=== PATIENT | female | born 1965 | race Two or more races ===

== ENCOUNTER 2019-10-05 10:55 | Emergency (ER) | payer SELFPAY ==
[~2019-10-05] VITALS: Ht 162.6 cm; Wt 60.3 kg
[2019-10-05] MEDS ORDERED: DexAMETHasone SOD PHOS 10MG/1ML VIAL INJ IM ONE (11:30)
[2019-10-05 12:59] VITALS: BP 120/72
== END 2019-10-05 13:04 | disposition home or self-care (01) ==
LOC: ER 10:55
DX: J18.9 Pneumonia, unspecified organism (principal); J06.9 Acute upper respiratory infection, unspecified
CPT/HCPCS: 36415; 71045; 87426; 96372; 99284; J1100

== ENCOUNTER 2019-10-07 03:53 | Inpatient (IN) | payer OTHER ==
[~2019-10-07] VITALS: Ht 162.6 cm; Wt 62.3 kg
[2019-10-07] MEDS ORDERED: LACTATED RINGER'S 1,000 ML IV ONE (06:15)
[2019-10-07] MEDS ORDERED: AZITHROMYCIN 500MG/ 250ML 250 ML IV ONE (06:15)
[2019-10-07 06:29] LABS: INR 0.88 (0.9-1.15); Partial Thromboplastin Time 22.4 sec (23.0-31.2)
[2019-10-07 06:52] LABS: Chloride 105 mmol/L (98-107); Lactic Acid w/Reflex 4.1 mmol/L (0.4-2.0); Potassium 3.9 mmol/L (3.5-5.1); Sodium 139 mmol/L (136-145)
[2019-10-07 07:02] LABS: Alanine Aminotransferase 52 U/L (13-56); Albumin 3.2 g/dL (3.4-5.0); Alkaline Phosphatase 79 U/L (45-117); Anion Gap 8 (5-15); Aspartate Aminotransferase 74 U/L (15-37); BUN/Creatinine Ratio 10.3; Bilirubin, Total 0.2 mg/dL (0.2-1.0); Blood Urea Nitrogen 8 mg/dL (7-18); Calcium 8.7 mg/dL (8.5-10.1); Carbon Dioxide 26 mmol/L (21-32); GFR African American 99 mL/min; GFR Non-African American 81 mL/min; Glucose 121 mg/dL (74-106); Lactate Dehydrogenase 358 U/L (84-246); Total Protein 8.4 g/dL (6.4-8.2)
[2019-10-07 07:06] LABS: Basophils # (auto) 0 10 ^3/uL (0-0.2); Basophils % (auto) 0.2 % (0.0-2.0); Eosinophils # (auto) 0 10 ^3/uL (0-0.8); Hematocrit 36.1 % (36.0-46.0); Hemoglobin 11.3 g/dL (12.2-16.2); Lymphocytes # (auto) 0.7 10 ^3/uL (0.4-5.4); Lymphocytes % (auto) 4.3 % (10.0-50.0); Mean Corpuscular Hemoglobin 23.7 pg (28.0-32.0); Mean Corpuscular Hgb Conc. 31.3 g/dL (32.0-36.0); Monocytes # (auto) 0.9 10 ^3/uL (0-1.3); Monocytes % (auto) 5.9 % (0.0-12.0); Neutrophils # (auto) 14.1 10 ^3/uL (1.6-8.6); Neutrophils % (auto) 89.6 % (37.0-80.0); Platelet Count (auto) 341 10^3/uL (140-450); Red Blood Cells 4.75 10^6/uL (4.0-5.20); Red Cell Distribution Width 16.3 % (11.8-14.3); White Blood Cell 15.8 10^3/uL (4.4-10.8)
[2019-10-07] MEDS ORDERED: SODIUM CHLORIDE 0.9% 1,000 ML IV SCH (07:09)
[2019-10-07] MEDS ORDERED: MORPHINE SULF INJ 2 MG/ML SYRINGE 1ML IV PRN (07:15)
[2019-10-07] MEDS ORDERED: TEMAZEPAM 15 MG CAP PO PRN (07:15)
[2019-10-07] MEDS ORDERED: ACETAMINOPHEN 325 MG TAB PO PRN (07:15)
[2019-10-07] MEDS ORDERED: NITROGLYCERIN 0.4 MG SL TAB SL PRN (07:15)
[2019-10-07] MEDS ORDERED: ONDANSETRON HCL 4 MG/2 ML VIAL IV PRN (07:15)
[2019-10-07 08:37] VITALS: BP 126/78
[2019-10-07] MEDS ORDERED: AZIT250T9 PO (10:36)
[2019-10-07] MEDS ORDERED: ALBUAER3 IN (10:36)
[2019-10-07] MEDS: ZINC SULFATE 220mg CAP or TAB PO SCH (10:46)
[2019-10-07] MEDS: FAMOTIDINE 20 MG TAB PO SCH ×2 (10:47→21:18)
[2019-10-07] MEDS: ASCORBIC ACID 1,000 MG TAB PO SCH (10:47)
[2019-10-07] MEDS: CHOLECALCIFEROL (VITD3) 2,000 UNIT CAP PO SCH (10:47)
[2019-10-07] MEDS: ENOXAPARIN SOD 40 MG/0.4 ML SYRINGE SC SCH (10:48)
[2019-10-07] MEDS: DOXYCYCLINE 100MG/250ML 250 ML IV SCH ×2 (10:48→21:18)
[2019-10-07] MEDS: DexAMETHasone SOD PHOS 10MG/1ML VIAL INJ IV SCH (10:52)
[2019-10-07 12:00] VITALS: BP 113/74
[2019-10-07] MEDS ORDERED: guaiFENesin-CODEINE Liq 5 ML UD PO ONE (12:30)
[2019-10-07] MEDS ORDERED: cefTRIAXone 1GM/50ML D5W 50 ML IV ONE (12:30)
--- NOTE | 2019-10-07 13:10 | NUR ---
SPOKE WITH Juan PUGH OVER THE PHONE REGARDING PATIENT STATUS. INFORMED OF PATIENTS COUGH AND CURRENT LABS. SEE EMR FOR NEW ORDERS.
[2019-10-07] MEDS: BUDESONIDE (INHALATION) 180 MCG IH IN SCH ×3 (14:08→21:20)
[2019-10-07] MEDS: ALBUTEROL SULF HFA 90MCG INH 200DOSE IN SCH ×3 (14:08→21:20)
--- NOTE | 2019-10-07 15:28 | NUR ---
PATIENT TAKEN DOWN TO CT BY PROCESS TECHNICIAN. PATIENT TRANSPORTED VIA WHEELCHAIR ON 4L NC AND TELEMETRY MONITORING. Addendum: 10/07/19 at 1936 by WILFREDO BANKS RN RN PLEASE DISREGARD TIME, CORRECT TIME OF NOTE WAS AT 1728.
[2019-10-07 16:47] VITALS: BP 112/69
--- NOTE | 2019-10-07 17:07 | NUR ---
RECEIVED CALL FROM RAISER HELPER EBEN, INSTRUCTED TO HAVE PATIENT READY IMMEDIATELY FOR CT SCAN AND TO PAGE SECURITY AND EVS.
--- NOTE | 2019-10-07 17:45 | NUR ---
PATIENT FOUND IN THE ANTE-ROOM IN WHEELCHAIR BY ANANT MALONE. PATIENT WHEELED BACK TO ROOM AND HOOKED BACK UP TO OXYGEN AT 4L NC. PATIENT ASSISTED BACK INTO BED. PATIENT COMPLAINING OF MILD COUGH, BUT NO OTHER S/S OF DISTRESS NOTED AT THIS TIME.
[2019-10-07] MEDS: guaiFENesin-CODEINE Liq 5 ML UD PO PRN (18:33)
[2019-10-07 18:55] LABS: Urine WBC None Seen /hpf (0 - 5)
--- NOTE | 2019-10-07 19:09 | NUR ---
PATIENT PROVIDED WITH IS. UP TO 500ML WITH PROPER RETURN DEMONSTRATION.
[2019-10-07 19:17] LABS: Urine Bacteria NONE SEEN /hpf (None Seen); Urine Blood Negative /uL (Negative); Urine Specific Gravity 1.009 (1.001-1.035)
--- NOTE | 2019-10-07 19:20 | NUR ---
Opening Shift Note Assumed care of patient, awake and alertx4. No S/S of distress/SOB or pain. Patient on 4L on NC. Instructed on POC and to call for assist PRN, will continue to monitor for changes Q1hr and PRN.
[2019-10-07 20:00] VITALS: BP 122/75
[2019-10-07 22:12] VITALS: BP 122/75
[2019-10-08] MEDS: guaiFENesin-CODEINE Liq 5 ML UD PO PRN ×4 (00:33→15:09)
[2019-10-08 05:34] VITALS: BP 116/62
[2019-10-08 05:52] LABS: Basophils # (auto) 0 10 ^3/uL (0-0.2); Eosinophils # (auto) 0 10 ^3/uL (0-0.8); Lymphocytes # (auto) 0.9 10 ^3/uL (0.4-5.4); Mean Corpuscular Volume 75.2 fL (80.0-100.0); Monocytes # (auto) 0.9 10 ^3/uL (0-1.3); Red Cell Distribution Width 16.5 % (11.8-14.3)
[2019-10-08 05:54] LABS: Basophils % (auto) 0.1 % (0.0-2.0); Hematocrit 33.6 % (36.0-46.0); Hemoglobin 10.7 g/dL (12.2-16.2); Lymphocytes % (auto) 5.9 % (10.0-50.0); Mean Corpuscular Hemoglobin 23.9 pg (28.0-32.0); Mean Corpuscular Hgb Conc. 31.8 g/dL (32.0-36.0); Neutrophils # (auto) 12.9 10 ^3/uL (1.6-8.6); Platelet Count (auto) 328 10^3/uL (140-450); Red Blood Cells 4.47 10^6/uL (4.0-5.20); White Blood Cell 14.7 10^3/uL (4.4-10.8)
[2019-10-08 06:09] LABS: Albumin 2.9 g/dL (3.4-5.0); Calcium 8.6 mg/dL (8.5-10.1); Potassium 3.8 mmol/L (3.5-5.1)
[2019-10-08 06:12] LABS: BUN/Creatinine Ratio 11.3; Bilirubin, Total 0.3 mg/dL (0.2-1.0); Total Protein 7.7 g/dL (6.4-8.2)
[2019-10-08] MEDS: BUDESONIDE (INHALATION) 180 MCG IH IN SCH ×2 (06:58→22:15)
[2019-10-08] MEDS: ALBUTEROL SULF HFA 90MCG INH 200DOSE IN SCH ×2 (06:58→22:15)
[2019-10-08 09:00] VITALS: BP 123/73
[2019-10-08] MEDS ORDERED: FERROUS SULFATE 325 MG TAB PO ONE (09:30)
[2019-10-08] MEDS: FAMOTIDINE 20 MG TAB PO SCH ×2 (10:52→22:00)
[2019-10-08] MEDS: cefTRIAXone 1GM/50ML D5W 50 ML IV SCH (10:52)
[2019-10-08] MEDS: ASCORBIC ACID 1,000 MG TAB PO SCH (10:52)
[2019-10-08] MEDS: CHOLECALCIFEROL (VITD3) 2,000 UNIT CAP PO SCH (10:53)
[2019-10-08] MEDS: DOXYCYCLINE 100MG/250ML 250 ML IV SCH (10:53)
[2019-10-08] MEDS: ZINC SULFATE 220mg CAP or TAB PO SCH (10:53)
[2019-10-08] MEDS: ENOXAPARIN SOD 40 MG/0.4 ML SYRINGE SC SCH (10:53)
[2019-10-08] MEDS: DexAMETHasone SOD PHOS 10MG/1ML VIAL INJ IV SCH (11:05)
[2019-10-08] MEDS: FERROUS SULFATE 325 MG TAB PO SCH ×2 (11:10→18:40)
--- NOTE | 2019-10-08 12:10 | NUR ---
Juan ROUNDING: Juan PUGH AT BEDSIDE. INFORMED OF PATIENT STATUS INCLUDING CURRENT VITALS. INFORMED OF PATIENTS TACHYPNEA DURING ANY EXERTION. RESPIRATORY RATE OF 24-26BPM. RECEIVED NEW ORDERS. SEE EMR.
[2019-10-08 13:02] VITALS: BP 108/69
[2019-10-08] MEDS ORDERED: FUROSEMIDE 40 MG/4 ML VIAL IV ONE (15:00)
[2019-10-08] MEDS ORDERED: ALPRAZolam 0.5 MG TAB PO ONE (15:00)
--- NOTE | 2019-10-08 15:01 | NUR ---
SPOKE TO Juan PUGH REGARDING PATIENTS INCREASED RESPIRATORY RATE OF 28BPM. OXYGEN SATURATIONS AT 95% ON 3LNC. PATIENT REPORTS FEELING OF SOB. RECEIVED NEW ORDERS. SPOKE TO RT WHO IS IN UNIT FOR ABG. SEE EMR FOR OTHER ORDERS.
[2019-10-08] MEDS ORDERED: POTASSIUM CHL 20 Meq TABLET PO ONE (15:30)
[2019-10-08 16:58] VITALS: BP 105/76
--- NOTE | 2019-10-08 19:45 | NUR ---
Opening Shift Note Assumed care of patient, awake and alert. The patient appear to be tachypneic with a respiration count of 36 breaths per minute. The patient's oxygenation saturation is 88% on 3.5 L NC. The patient is mostly mouth breathing. Instructed the patient to breathing through nose. Patient is requesting another dose of Lasix. She states that she felt better after receiving the initial dose of Lasix earlier in the day. Upon assessment of the lungs, there are slight crackles at the bases. Switched the patient to simple mask and increase oxygen to 8 L. Patient saturation increased to 93%. Will notify the hospitalist.
--- NOTE | 2019-10-08 20:10 | NUR ---
PATIENT STATES THAT SHE IS FEELING BETTER WITH THE SIMPLE MASK. OXYGEN SATURATION IS CURRENTLY AT 94%. STILL REQUESTING AN ADDITIONAL DOSE OF LASIX. HOSPITALIST HAS BEEN PAGED.
[2019-10-08 20:43] VITALS: BP 115/78
[2019-10-08] MEDS: DOXYCYCLINE 100 MG TAB/CAP PO SCH (22:00)
[2019-10-08] MEDS ORDERED: ALPRAZolam 0.5 MG TAB PO PRN (22:00)
[2019-10-08] MEDS ORDERED: FUROSEMIDE 20 MG/2 ML VIAL IV ONE (22:15)
--- NOTE | 2019-10-08 22:15 | NUR ---
HOSPITALIST CALLBACK Notified Dr. Tellez about the patient's request for another dose of Lasix. New order received for Lasix 20 mg IV ONCE.
--- NOTE | 2019-10-09 00:10 | NUR ---
PATIENT HAS BEEN PLACED BACK ON NC. CURRENT OXYGEN IS SET TO 5L. OXYGEN SATURATION IS CURRENTLY 93%.
[2019-10-09 05:17] LABS: Basophils # (auto) 0 10 ^3/uL (0-0.2); Basophils % (auto) 0.2 % (0.0-2.0); Eosinophils # (auto) 0 10 ^3/uL (0-0.8); Lymphocytes # (auto) 0.7 10 ^3/uL (0.4-5.4); Monocytes # (auto) 0.9 10 ^3/uL (0-1.3); Neutrophils # (auto) 5.8 10 ^3/uL (1.6-8.6); White Blood Cell 7.4 10^3/uL (4.4-10.8)
[2019-10-09 05:19] LABS: Hemoglobin 11.3 g/dL (12.2-16.2); Mean Corpuscular Hemoglobin 24.2 pg (28.0-32.0); Mean Corpuscular Hgb Conc. 32.3 g/dL (32.0-36.0); Mean Corpuscular Volume 74.9 fL (80.0-100.0); Monocytes % (auto) 12.5 % (0.0-12.0); Neutrophils % (auto) 78.3 % (37.0-80.0); Nucleated Red Blood Cells % 0.2 %; Platelet Count (auto) 364 10^3/uL (140-450); Red Blood Cells 4.67 10^6/uL (4.0-5.20); Red Cell Distribution Width 16.4 % (11.8-14.3)
[2019-10-09 05:33] LABS: BUN/Creatinine Ratio 25.8; Calcium 8.8 mg/dL (8.5-10.1); Potassium 4.3 mmol/L (3.5-5.1)
[2019-10-09 05:37] VITALS: BP 111/72
[2019-10-09] MEDS: ALBUTEROL SULF HFA 90MCG INH 200DOSE IN SCH ×2 (06:31→14:24)
--- NOTE | 2019-10-09 07:00 | NUR ---
WEANED PATIENT'S OXYGEN DOWN TO 3 L OF O2 NC. PATIENT TOLERATING WELL. WILL CONTINUE TO MONITOR THE PATIENT'S STATUS.
--- NOTE | 2019-10-09 08:30 | NUR ---
MAIKEL MONTERROSO REGARDING PATIENT STATUS. INFORMED OF PATIENTS INCREASED RESPIRATORY RATE WHEN SLEEPING AT 48BPM. INFORMED PATIENTS OXYGEN SATURATIONS AT 94% ON 3L NC. RECEIVED ORDER FOR ABG. SPOKE WITH ELIAZAR RT STATED TO CONTINUE TO OBESERVE FOR ANY CHANGES AND TO CALL BACK. PATIENT UP AND SITTING WITH RESPIRATORY RATE AMADOU 22BPM WITH NO COMPLAINTS AT THIS TIME.
[2019-10-09 09:00] VITALS: BP 114/68
[2019-10-09] MEDS: cefTRIAXone 1GM/50ML D5W 50 ML IV SCH (09:59)
[2019-10-09] MEDS: FERROUS SULFATE 325 MG TAB PO SCH ×3 (09:59→16:58)
[2019-10-09] MEDS: FAMOTIDINE 20 MG TAB PO SCH (10:00)
[2019-10-09] MEDS: DexAMETHasone SOD PHOS 10MG/1ML VIAL INJ IV SCH (10:00)
[2019-10-09] MEDS: ZINC SULFATE 220mg CAP or TAB PO SCH (10:00)
[2019-10-09] MEDS ORDERED: FUROSEMIDE 20 MG/2 ML VIAL IV SCH (10:00)
[2019-10-09] MEDS ORDERED: POTASSIUM CHL 20 Meq TABLET PO SCH (10:00)
[2019-10-09] MEDS: ASCORBIC ACID 1,000 MG TAB PO SCH (10:01)
[2019-10-09] MEDS: ENOXAPARIN SOD 40 MG/0.4 ML SYRINGE SC SCH (10:01)
[2019-10-09] MEDS: DOXYCYCLINE 100 MG TAB/CAP PO SCH (10:01)
[2019-10-09] MEDS: CHOLECALCIFEROL (VITD3) 2,000 UNIT CAP PO SCH (10:01)
--- NOTE | 2019-10-09 11:52 | NUR ---
Juan MONTERROSO AT BEDSIDE TO ASSESS PATIENT. INFORMED OF PATIENT STATUS AND PATIENT REPORTS OF FEELING BETTER.
[2019-10-09 12:00] VITALS: BP 115/74
--- NOTE | 2019-10-09 12:57 | NUR ---
Nutrition Assessment Notes please see attached link for complete assessment Est energy needs BW 60 [id number] kcal (25-30 kcal/kg BW ) Est protein needs: 60-72 g (1-1.2g/kg BW) Will reassess prn. Addendum: 10/09/19 at [address] Amended: Links added.
--- NOTE | 2019-10-09 13:57 | NUR ---
1320 10/09/19 - Faxed to [facility] at [phone] face sheet, order for transfer to network facility [facility], H/P, labs, meds, progress notes. Contacted by [facility] Risk [employer] UM coordinator Alessandra who provided authorization [id number] for [facility] transportation. Contacted by [facility] transfer center intake who confirmed receipt of all faxed clinicals. Pending review and bed availability. Patient is aware and agreeable to transfer. Patient placed on [facility] " will call" list.
[2019-10-09 16:00] VITALS: BP 113/78
--- NOTE | 2019-10-09 16:48 | NUR ---
CALLED [facility] TO PLACE PATIENT FOR HORSE RACING MANAGER TIME AT 8:30PM
--- NOTE | 2019-10-09 16:50 | NUR ---
CALLED [facility] TO INFORM THEM OF PATIENTS CONTACT [employer] OPERATOR HELPER TIME BEING 8:30PM. SPOKE WITH BLADIMIR WHO AGREED.
--- NOTE | 2019-10-09 19:47 | NUR ---
CALLED REPORT TO ANANT YIP FROM [place]. ALL QUESTIONS ANSWERED.
[2019-10-09 22:00] VITALS: BP 119/79
--- NOTE | 2019-10-09 22:12 | NUR ---
Called [facility] for update on pickup time. Spoke with Peggy who states transport has arrived and should be in the unit shortly.
--- NOTE | 2019-10-09 22:35 | NUR ---
TRANSFER [facility] present on unit to transport patient to [facility]. Patient transferred via gurney with all personal belongings to [facility] by [facility]. Placed on 6L NC by [facility] staff. Patient is stable with on s/s of distress noted at time of departure.
== END 2019-10-09 22:58 | disposition short-term general hospital (02) | DRG 871 ==
LOC: ER 03:58 → TELE 03:59 → TELE-EAST 10:11
PROVIDERS: ADMIT Nurse Practitioner; ATTEND Internal Medicine Nephrology
DX: A41.89 Other specified sepsis (principal); J12.89 Other viral pneumonia; J96.01 Acute respiratory failure with hypoxia; U07.1 COVID-19; D50.9 Iron deficiency anemia, unspecified; R65.20 Severe sepsis without septic shock
CPT/HCPCS: 36415; 36600; 71045; 71250; 80048; 80053; 81001; 82728; 82805; 83036; 83540; 83550; 83605; 83615; 83735; 83880; 84484; 85025; 85379; 85610; 85730; 86141; 87040; 87426; 93970; 94640; 96365; G0378; J0696; J1100; J3490